=== PATIENT | male | born 2000 | race Caucasian/White ===

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

== ENCOUNTER 2021-01-07 11:16 | Emergency (ER) | payer OTHER ==
[~2021-01-07] VITALS: Ht 182.9 cm; Wt 102.3 kg
[2021-01-07 12:30] VITALS: BP 146/64; PULSE 72; TEMP 98.4
== END 2021-01-07 12:30 | disposition home or self-care (01) ==
LOC: COL.ER 11:16
DX: U07.1 COVID-19 (principal)